=== PATIENT | male | born 1935 | race Caucasian/White ===

== ENCOUNTER 2020-05-24 03:16 | Emergency (ER) | payer MEDICARE ==
[~2020-05-24] VITALS: Ht 172.7 cm; Wt 80.7 kg
[2020-05-24] MEDS ORDERED: LIPITOR40 MG PO (03:31)
[2020-05-24] MEDS ORDERED: METFORMIN HCL500 M3 PO (03:31)
[2020-05-24] MEDS ORDERED: CARVEDILOL25 MG PO (03:31)
[2020-05-24] MEDS ORDERED: PROSCAR 5MG TABL5 M1 PO (03:32)
[2020-05-24] MEDS ORDERED: FLOMAX0.4 MG PO (03:32)
[2020-05-24] MEDS ORDERED: PROAIR HFA8.5 GM INH (03:32)
[2020-05-24] MEDS ORDERED: FUROSEMIDE 40 M40 MG PO (03:33)
[2020-05-24 03:50] LABS: ABSOLUTE BASOPHILS 0.1 thou/uL (0.0-0.2); ABSOLUTE EOSINOPHILS 0.1 thou/uL (0.0-0.7); ABSOLUTE LYMPHOCYTES 1.7 thou/uL (0.8-5.3); ABSOLUTE MONOCYTES 0.6 thou/uL (0.0-1.2); ABSOLUTE NEUTROPHILS 4.8 thou/uL (1.6-8.1); BASOPHILS 1.1 %; EOSINOPHILS 1.8 %; HEMATOCRIT 37.4 % (42.0-52.0); HEMOGLOBIN 12.7 gm/dL (14.0-18.0); LYMPHOCYTES 23.2 %; MPV 6.6 fl. (7.2-11.1); NUCLEATED RBCS 0 /100WBC; PLATELET COUNT* 252 thou/uL (150-400); POLYS 65.9 %; RBC 4.11 mil/uL (4.50-6.00); RDW-CV 14.6 % (10.5-14.5); WBC 7.3 thou/uL (4.0-11.0)
[2020-05-24 04:02] LABS: CALCIUM 8.6 mg/dL (8.5-10.1); POTASSIUM 3.8 mmol/L (3.5-5.1)
[2020-05-24 04:06] LABS: INR 1.2
[2020-05-24 04:13] LABS: ALBUMIN 3.5 g/dL (3.4-5.0); MAGNESIUM 1.1 mg/dL (1.8-2.4); TOTAL BILIRUBIN 0.4 mg/dL (<0.1-1.0); TOTAL PROTEIN 7.4 g/dL (6.4-8.2)
[2020-05-24 06:35] VITALS: BP 116/63
--- NOTE | 2020-05-24 12:55 | EKG ---
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: : 1935 Requested By: Anuja Collier Order Number: [id number] MD: Kvng Ellis Measurements Intervals [place] Rate: 98 P: 0 [place]: 259 QRS: 43 QRSD: 82 T: 20 QT: 355 QTc: 454 Interpretive Statements Sinus rhythm Prolonged [place] interval Abnormal R-wave progression, early transition No previous ECG available for comparison Electronically Signed On 05-24-2020 12:55:23 CDT by Kvng Ellis [email or web address] <ELECTRONICALLY SIGNED> By: Kvng Ellis MD, [facility] 05/24/20 1255 [id number] [id number] Kvng Ellis MD, [facility] /EPI
== END 2020-05-24 06:35 | disposition home or self-care (01) ==
LOC: M.ERS 03:16
PROVIDERS: Emergency Medicine
DX: R06.00 Dyspnea, unspecified (principal); I10 Essential (primary) hypertension; E11.9 Type 2 diabetes mellitus without complications; Z90.2 Acquired absence of lung [part of]; Z85.118 Personal history of other malignant neoplasm of bronchus and lung; Z88.8 Allergy status to other drugs, medicaments and biological substances

== ENCOUNTER 2020-12-23 07:13 | Emergency (ER) | payer OTHER, MEDICARE ==
[~2020-12-23] VITALS: Ht 172.7 cm; Wt 77.1 kg
[~2020-12-23 07:13] MED LIST: CARVEDILOL25 MG PO; FLOMAX0.4 MG PO; FUROSEMIDE 40 M40 MG PO; LIPITOR40 MG PO; METFORMIN HCL500 M3 PO; PROAIR HFA8.5 GM INH; PROSCAR 5MG TABL5 M1 PO
[2020-12-23] MEDS ORDERED: MAGNESIUM250 M1 PO (07:30)
[2020-12-23] MEDS ORDERED: COMBIVENT RESPIM4 GM INH (07:31)
[2020-12-23] MEDS ORDERED: VITAMIN D325 MC3 PO (07:31)
[2020-12-23] MEDS ORDERED: OMEPRAZOLE 20 M20 M1 PO (07:31)
[2020-12-23] MEDS ORDERED: IPRATROPIUM BRO15 ML NASAL (07:32)
[2020-12-23] MEDS ORDERED: SPIRIVA INH (07:32)
[2020-12-23] MEDS ORDERED: ONE DAILY COMP1 EAC2 PO (07:33)
[2020-12-23 07:59] LABS: ABSOLUTE BASOPHILS 0.1 thou/uL (0.0-0.2); ABSOLUTE EOSINOPHILS 0.1 thou/uL (0.0-0.7); ABSOLUTE LYMPHOCYTES 1.3 thou/uL (0.8-5.3); ABSOLUTE MONOCYTES 0.6 thou/uL (0.0-1.2); ABSOLUTE NEUTROPHILS 5.8 thou/uL (1.6-8.1); BASOPHILS 0.9 %; EOSINOPHILS 0.8 %; HEMATOCRIT 39.1 % (42.0-52.0); HEMOGLOBIN 12.7 gm/dL (14.0-18.0); LYMPHOCYTES 16.6 %; MCH 30.5 pg (26.0-34.0); MCHC 32.4 g/dL (28.0-37.0); MCV 94.4 fL (80.0-100.0); MONOCYTES 7.8 %; MPV 6.5 fl. (7.2-11.1); NUCLEATED RBCS 0 /100WBC; PLATELET COUNT* 228 thou/uL (150-400); POLYS 73.9 %; RBC 4.14 mil/uL (4.50-6.00); RDW-CV 15.1 % (10.5-14.5); WBC 7.8 thou/uL (4.0-11.0)
[2020-12-23 08:07] LABS: CALCIUM 8.9 mg/dL (8.5-10.1); CREATININE 0.9 mg/dL (0.6-1.3); POTASSIUM 3.7 mmol/L (3.5-5.1)
[2020-12-23 08:11] LABS: ALBUMIN 3.8 g/dL (3.4-5.0); APTT 24.8 Seconds (25.0-31.3); INR 1.2; MAGNESIUM 1.2 mg/dL (1.8-2.4); PROTIME 12.2 Seconds (9.20-11.50); TOTAL BILIRUBIN 0.7 mg/dL (<0.1-1.0); TOTAL PROTEIN 7.6 g/dL (6.4-8.2)
--- NOTE | 2020-12-23 10:25 | EKG ---
[place] [address] ELECTROCARDIOGRAM REPORT Name: LAYA TRACY Room: [facility]#: [id number] Admission: 12/23/20 Attend Phys: Discharge: Date of : 39 Date of Service: 12/23/20729 Report #: [id number] THIS REPORT FOR: //name// [facility] ED Test Date: 2020-12-23 Test Time: 07:30:01 Pat Name: LAYA TRACY Department: Room: Gender: Field Service Analyst: : 1935 Requested By: Herrera Chi Order Number: [id number] MD: Ellis Romano Measurements Intervals [place] Rate: 85 P: 23 [place]: 219 QRS: 69 QRSD: 124 T: 25 QT: 393 QTc: 468 Interpretive Statements Sinus rhythm Borderline prolonged [place] interval Right bundle branch block Compared to ECG 05/24/2020 03:48:24 Right bundle-branch block now present Electronically Signed On 12-23-2020 10:24:49 PRISONER CLASSIFICATION INTERVIEWER by Ellis Romano [email or web address] <ELECTRONICALLY SIGNED> By: Ellis Romano MD, FAC 12/23/20 [phone] 9 Ellis Romano MD, [facility] /EPI
[2020-12-23] MEDS ORDERED: HYDROCODON-ACE1 EAC7 PO (10:27)
[2020-12-23] MEDS ORDERED: FLEXERIL PO (10:27)
[2020-12-23 10:56] VITALS: BP 135/61
== END 2020-12-23 10:56 | disposition home or self-care (01) ==
LOC: M.ERS 07:13
PROVIDERS: Emergency Medicine Emergency Medical Services
DX: S46.811A Strain of other muscles, fascia and tendons at shoulder and upper arm level, right arm, initial encounter (principal); I10 Essential (primary) hypertension; E11.9 Type 2 diabetes mellitus without complications; Z85.118 Personal history of other malignant neoplasm of bronchus and lung; Z88.8 Allergy status to other drugs, medicaments and biological substances; X58.XXXA Exposure to other specified factors, initial encounter; Y93.89 Activity, other specified; Y92.89 Other specified places as the place of occurrence of the external cause; Y99.8 Other external cause status

== ENCOUNTER 2021-03-26 22:59 | Observation (INO) | payer OTHER, MEDICARE ==
[~2021-03-26] VITALS: Ht 172.7 cm; Wt 79.7 kg
[~2021-03-26 22:59] MED LIST changes: +COMBIVENT RESPIM4 GM INH; +FLEXERIL PO; +HYDROCODON-ACE1 EAC7 PO; +IPRATROPIUM BRO15 ML NASAL; +MAGNESIUM250 M1 PO; +OMEPRAZOLE 20 M20 M1 PO; +ONE DAILY COMP1 EAC2 PO; +SPIRIVA INH; +VITAMIN D325 MC3 PO
[2021-03-26 23:04] VITALS: BP 104/51
[2021-03-26] MEDS ORDERED: METFORMIN HCL500 M3 PO (23:14)
[2021-03-26] MEDS ORDERED: CARVEDILOL25 MG PO (23:15)
[2021-03-26] MEDS ORDERED: TESSALON PERLE100 M1 PO (23:16)
[2021-03-26] MEDS ORDERED: ALOGLIPTIN25 MG PO (23:17)
[2021-03-26] MEDS ORDERED: CALCIUM500 MG PO (23:18)
[2021-03-26] MEDS ORDERED: ASA81BEC PO (23:19)
[2021-03-27] VITALS (7 sets, daily range): BP systolic 98–132; BP diastolic 45–76
[2021-03-27 00:27] LABS: ABSOLUTE BASOPHILS 0.1 thou/uL (0.0-0.2); ABSOLUTE EOSINOPHILS 0.1 thou/uL (0.0-0.7); ABSOLUTE LYMPHOCYTES 1.4 thou/uL (0.8-5.3); ABSOLUTE MONOCYTES 0.6 thou/uL (0.0-1.2); ABSOLUTE NEUTROPHILS 4.9 thou/uL (1.6-8.1); BASOPHILS 1.1 %; EOSINOPHILS 1.7 %; HEMATOCRIT 31.3 % (42.0-52.0); HEMOGLOBIN 10.6 gm/dL (14.0-18.0); LYMPHOCYTES 19.6 %; MCH 31.6 pg (26.0-34.0); MCHC 33.9 g/dL (28.0-37.0); MCV 93.2 fL (80.0-100.0); MONOCYTES 8.9 %; MPV 7.5 fl. (7.2-11.1); NUCLEATED RBCS 0 /100WBC; PLATELET COUNT* 207 thou/uL (150-400); POLYS 68.7 %; RBC 3.36 mil/uL (4.50-6.00); RDW-CV 14.2 % (10.5-14.5); WBC 7.1 thou/uL (4.0-11.0)
[2021-03-27 00:29] LABS: CALCIUM 8.5 mg/dL (8.5-10.1); CREATININE 1.1 mg/dL (0.6-1.3); POTASSIUM 3.3 mmol/L (3.5-5.1)
[2021-03-27 00:34] LABS: ALBUMIN 3.4 g/dL (3.4-5.0); TOTAL BILIRUBIN 0.3 mg/dL (<0.1-1.0); TOTAL PROTEIN 6.9 g/dL (6.4-8.2)
--- NOTE | 2021-03-27 00:42 | NUR ---
PT BACK FROM CT.
--- NOTE | 2021-03-27 02:01 | NUR ---
PT'S SPOUSE, MAGGIE, WOULD LIKE STATUS UPDATE IN THE MORNING ONCE PT HAS A ROOM. CELL PHONE
--- NOTE | 2021-03-27 02:15 | NUR ---
REPORT GIVEN TO ALIREZA. PT WILL GO TO [facility] PENDING COVID SWAB.
--- NOTE | 2021-03-27 03:00 | NUR ---
RECEIVED REPORT FROM ER. PT TO ROOM PER CART. UP WITH SBA, STEADY. EDUCATED ON SAFETY AND FALL RISK, BED ALARM ON. TELEMETRY APPLIED SHOWING SR WITH 1ST AVB. SEE ADMISSION ASSESSMENT AND HX.
--- NOTE | 2021-03-27 06:07 | NUR ---
SLEPT WELL AFTER ADMISSION COMPLETED. NO CHANGE IN ASSESSMENT. HAS NOT BEEN UP SINCE ARRIVING TO ROOM.
[2021-03-27 15:29] LABS: URINE BILIRUBIN NEGATIVE (Negative); URINE BLOOD NEGATIVE (Negative); URINE CLARITY CLEAR; URINE COLOR YELLOW; URINE GLUCOSE-RANDOM NEGATIVE (Negative); URINE KETONES NEGATIVE (Negative); URINE LEUKOCYTES-REFLEX 1+ (Negative); URINE NITRITE-REFLEX NEGATIVE (Negative); URINE PROTEIN NEGATIVE (Negative); URINE UROBILINOGEN 0.2 E.U./dl (0.2-1.0)
[2021-03-27 16:28] LABS: SQUAMOUS >10 Many /LPF (0-3)
[2021-03-27 16:29] LABS: BACTERIA-REFLEX >30 Many /HPF (None Seen); HYALINE CASTS 0-3 Few /LPF (None Seen); MUCUS 0-3 Light strn/LPF (None Seen)
[2021-03-27 16:30] LABS: URINE RBC 0-2 Rare /HPF (0-2)
[2021-03-27 16:32] LABS: CALCIUM OXALATE 0-3 Few /LPF (None Seen)
[2021-03-28] VITALS: BP 118/64
[2021-03-28 04:00] VITALS: BP 123/74
--- NOTE | 2021-03-28 06:19 | NUR ---
ASSUMED CARE OF PT AFTER REPORT AT 1930. PT A&OX4. VSS. PHYSICAL ASSESSMENT COMPLETED AND CHARTED. PT ON RA.PT TRACING SR/1STD/BBB ON TELE. PT DENIES ANY PAIN. FALL PRECAUTIONS IN PLACE. CALL LIGHT WITHIN REACH.
[2021-03-28 07:52] LABS: ABSOLUTE BASOPHILS 0.1 thou/uL (0.0-0.2); ABSOLUTE EOSINOPHILS 0.1 thou/uL (0.0-0.7); ABSOLUTE LYMPHOCYTES 1.7 thou/uL (0.8-5.3); ABSOLUTE MONOCYTES 0.6 thou/uL (0.0-1.2); ABSOLUTE NEUTROPHILS 4.1 thou/uL (1.6-8.1); EOSINOPHILS 2.1 %; HEMATOCRIT 31.4 % (42.0-52.0); HEMOGLOBIN 10.4 gm/dL (14.0-18.0); LYMPHOCYTES 25.2 %; MCH 31.1 pg (26.0-34.0); MCHC 33.2 g/dL (28.0-37.0); MCV 93.6 fL (80.0-100.0); MONOCYTES 8.7 %; MPV 7.7 fl. (7.2-11.1); NUCLEATED RBCS 0 /100WBC; PLATELET COUNT* 194 thou/uL (150-400); RBC 3.36 mil/uL (4.50-6.00); RDW-CV 14.8 % (10.5-14.5); WBC 6.6 thou/uL (4.0-11.0)
[2021-03-28 08:03] LABS: ALKALINE PHOSPHATASE 117 U/L (46-116); ANION GAP 4 mmol/L (7-16); BUN 9 mg/dL (7-18); CALCIUM 8.3 mg/dL (8.5-10.1); CHLORIDE 105 mmol/L (98-107); CO2 32 mmol/L (21-32); CREATININE 0.8 mg/dL (0.6-1.3); GLUCOSE 134 mg/dL (70-99); SGOT 16 U/L (15-37); SGPT 14 U/L (30-65); SODIUM 141 mmol/L (136-145); TOTAL BILIRUBIN 0.5 mg/dL (<0.1-1.0); TOTAL PROTEIN 6.3 g/dL (6.4-8.2); TROPONIN-I LEVEL <0.06 ng/mL (<0.06)
[2021-03-28 09:55] VITALS: BP 173/95
[2021-03-28] MEDS ORDERED: CARVEDILOL25 MG PO (11:58)
[2021-03-28 13:06] VITALS: BP 99/61
[2021-03-28 13:23] VITALS: BP 99/61
--- NOTE | 2021-03-28 14:13 | NUR ---
RECEIVED REPORT. ASSUMED CARE OF PT AROUND 0730. AM ASSESSMENT AND VITALS COMPLETED CHARTED. MEDS PER EMAR. PT NOT WANTING TO STAY TILL TOMORROW FOR ECHO - [facility] DISCHARGE ORDERS RECEIVED. DISCHARGE COMPLETED DOCUMENTED. IV AND REHAB NURSING TECH REMOVED. PT AWARE OF MEDICATION CHANGES. AWARE TO FOLLOW UP WITH PCP IN 2 WEEKS. ALL BELONGINGS GATHERED AND SENT OUT WITH PT. PT LEFT UNIT IN WC WITH NURSING STAFF. PT LEFT HOSPITAL IN CAR WITH SPOUSE.
--- NOTE | 2021-03-29 13:46 | EKG ---
[place] [address] ELECTROCARDIOGRAM REPORT Name: LAYA TRACY Room: [address]#: [id number] Admission: 03/27/21 Attend Phys: Elpidio Rushing, Discharge: 03/28/21 Date of : 39 Date of Service: 03/26/21 2308 Report #: [id number] THIS REPORT FOR: //name// [facility] ED Test Date: 2021-03-26 Test Time: 23:08:24 Pat Name: LAYA TRACY Department: Room: [facility] Gender: M Rn Employee Health: KASHMIR : 1935 Requested By: Gina Santillan Order Number: [id number] MD: Malvin Mcwilliams Measurements Intervals [place] Rate: 86 P: 34 DC: 248 QRS: 58 QRSD: 128 T: 14 QT: 396 QTc: 474 Interpretive Statements Sinus rhythm Prolonged [place] interval Right bundle branch block Compared to ECG 12/23/2020 07:30:01 No significant changes Electronically Signed On 03-29-2021 13:46:41 CDT by Malvin Mcwilliams [email or web address] <ELECTRONICALLY SIGNED> By: Malvin Mcwilliams MD, [facility] 03/29/21 1346 2308 2308 Malvin Mcwilliams MD, [facility] /EPI
== END 2021-03-28 14:10 | disposition home or self-care (01) ==
LOC: M.ERS 22:59 → M.TBA-ER 03-27 02:00 → M.2W 03-27 03:15
PROVIDERS: Personal Emergency Response Attendant; ADMIT Internal Medicine; ATTEND Internal Medicine
DX: I95.89 Other hypotension (principal); Z20.822 Contact with and (suspected) exposure to COVID-19; R42 Dizziness and giddiness; I11.0 Hypertensive heart disease with heart failure; I50.9 Heart failure, unspecified; E11.9 Type 2 diabetes mellitus without complications; D64.9 Anemia, unspecified; E44.1 Mild protein-calorie malnutrition; Z85.118 Personal history of other malignant neoplasm of bronchus and lung; Z79.82 Long term (current) use of aspirin; Z79.84 Long term (current) use of oral hypoglycemic drugs; Z79.899 Other long term (current) drug therapy; Z87.891 Personal history of nicotine dependence